=== PATIENT | male | born 1960 | race Caucasian/White ===

== ENCOUNTER 2020-04-05 12:26 | Inpatient (IN) | payer OTHER ==
[~2020-04-05] VITALS: Ht 170.2 cm; Wt 104.3 kg
[2020-04-05 12:35] VITALS: Ht 170.2 cm; Wt 104.3 kg
[2020-04-05 14:20] LABS: PLATELET COUNT 169 x10^3mcL (130-400)
[2020-04-05 14:27] LABS: RED CELL DISTRIBUTION WIDTH 15.2 % (11.5-14.5)
[2020-04-05 14:40] LABS: T3 TOTAL 0.59 ng/mL
[2020-04-05 15:12] LABS: ALKALINE PHOSPHATASE 62 U/L (46-116); ALT/SGPT 23 U/L (16-63); AST/SGOT 12 U/L (15-37); BILIRUBIN TOTAL 1.56 mg/dL (0.20-1.00); CARBON DIOXIDE 16.2 mmol/L (21-32); CHLORIDE SERUM 78 mmol/L (98-107); GFR1 > 60 mL/min; GLUCOSE SERUM 170 mg/dL (74-106); POTASSIUM SERUM 3.8 mmol/L (3.5-5.1); TOTAL PROTEIN, SERUM 6.6 g/dL (6.4-8.2)
[2020-04-05 15:14] LABS: CK-MB < 0.5 ng/mL (0-3.6); CREATINE KINASE 101 U/L (39-308)
[2020-04-05 15:15] LABS: ALBUMIN 2.4 g/dL (3.4-5.0); SODIUM SERUM 109 mmol/L (136-145)
[2020-04-05 15:20] LABS: BAND NEUTROPHIL 14 % (0-10); BASOPHIL 0 % (0-2); MONOCYTE 2 % (0-7); SEGMENTED NEUTROPHILS 76 % (37-75)
[2020-04-05 15:21] LABS: rbc morphology (normal/abnorm) ABNORMAL (NORMAL)
[2020-04-05 15:27] LABS: FREE T4 1.28 ng/dL (0.76-1.46); FREE THYROXINE INDEX 2.3 ug/dL (1.4-4.5); T4(THYROXINE) 6.8 ug/dL (4.7-13.3)
[2020-04-05 15:35] LABS: ERYTHROCYTE SED RATE 80 mm/hr (0-20)
[2020-04-05 15:41] LABS: C REACTIVE PROTEIN 30.9 mg/dL (<=0.9)
[2020-04-05] MEDS ORDERED: KEN025C (16:09)
[2020-04-05] MEDS ORDERED: TERAZOSIN HCL2 MG PO (16:10)
[2020-04-05] MEDS ORDERED: PEPCID AC20 M2 PO (16:11)
[2020-04-05] MEDS ORDERED: HUMULIN 70/303 ML SQ (16:12)
[2020-04-05] MEDS ORDERED: GLUCOPHAGE500 MG PO (16:13)
[2020-04-05 16:14] LABS: UA SPECIFIC GRAVITY 1.025 (1.005-1.035); microscopic required? YES; urine erythrocyte 3+ (NEGATIVE)
[2020-04-05] MEDS ORDERED: ZESTRIL5 MG PO (16:14)
[2020-04-05] MEDS ORDERED: ROSUVASTATIN CA40 MG PO (16:14)
[2020-04-05] MEDS ORDERED: ASPIR 8181 MG PO (16:15)
[2020-04-05] MEDS ORDERED: METOPROLOL TART25 M1 PO (16:15)
[2020-04-05] MEDS ORDERED: TERAZOSIN HCL10 MG PO (16:16)
[2020-04-05 16:44] VITALS: BP 125/73
[2020-04-05 17:15] VITALS: BP 139/72
[2020-04-05 19:46] VITALS: BP 124/71
[2020-04-06 05:34] VITALS: BP 122/60
[2020-04-06 07:17] LABS: CARBON DIOXIDE 23.1 mmol/L (21-32)
[2020-04-06 07:19] LABS: PLATELET COUNT 159 x10^3mcL (130-400)
[2020-04-06 07:33] LABS: RED CELL DISTRIBUTION WIDTH 15.4 % (11.5-14.5)
[2020-04-06 08:06] VITALS: BP 123/74
[2020-04-06 12:07] LABS: BAND NEUTROPHIL 16 % (0-10); BASOPHIL 0 % (0-2); MONOCYTE 4 % (0-7); SEGMENTED NEUTROPHILS 72 % (37-75)
[2020-04-06 12:08] LABS: PLATELET MORPHOLOGY PLATELETS NORMAL; rbc morphology (normal/abnorm) ABNORMAL (NORMAL)
[2020-04-06 12:26] VITALS: BP 112/75
[2020-04-06 20:55] VITALS: BP 159/85
[2020-04-07 05:50] VITALS: BP 140/77
[2020-04-07 07:18] LABS: PLATELET COUNT 182 x10^3mcL (130-400)
[2020-04-07 07:28] LABS: BASOPHIL % 0 % (0-2); RED CELL DISTRIBUTION WIDTH 15.6 % (11.5-14.5)
[2020-04-07 07:52] LABS: CALCIUM 8.5 mg/dL (8.5-10.1); CARBON DIOXIDE 17.5 mmol/L (21-32); CREATININE SERUM 2.4 mg/dL (0.7-1.3); POTASSIUM SERUM 4.9 mmol/L (3.5-5.1); TOTAL PROTEIN, SERUM 7.2 g/dL (6.4-8.2)
[2020-04-07 07:57] LABS: ALBUMIN 2.5 g/dL (3.4-5.0)
[2020-04-07 09:50] VITALS: BP 138/75
[2020-04-07 13:04] VITALS: BP 136/71
[2020-04-07 16:39] VITALS: BP 140/71
[2020-04-07 20:17] VITALS: BP 131/71
[2020-04-08 05:24] VITALS: BP 127/61
[2020-04-08 07:35] LABS: PLATELET COUNT 221 x10^3mcL (130-400)
[2020-04-08 07:49] LABS: CALCIUM 8.9 mg/dL (8.5-10.1); CARBON DIOXIDE 22.4 mmol/L (21-32); CREATININE SERUM 2.3 mg/dL (0.7-1.3)
[2020-04-08 07:58] LABS: BASOPHIL % 0 % (0-2); RED CELL DISTRIBUTION WIDTH 16.2 % (11.5-14.5)
[2020-04-08 08:22] VITALS: BP 145/70
[2020-04-08 12:30] VITALS: BP 140/70
[2020-04-08 16:51] VITALS: BP 137/86
[2020-04-08 20:35] VITALS: BP 154/81
[2020-04-09 05:05] VITALS: BP 148/76
[2020-04-09 07:55] VITALS: BP 158/80
[2020-04-09 12:04] VITALS: BP 151/76
[2020-04-09 12:10] LABS: BASOPHIL % 0.4 % (0-2); PLATELET COUNT 247 x10^3mcL (130-400)
[2020-04-09 12:13] LABS: CALCIUM 9.3 mg/dL (8.5-10.1); CARBON DIOXIDE 26.3 mmol/L (21-32); CREATININE SERUM 2.1 mg/dL (0.7-1.3); POTASSIUM SERUM 3.5 mmol/L (3.5-5.1)
[2020-04-09 16:36] VITALS: BP 141/84
[2020-04-09 18:17] LABS: microscopic required? YES; urine erythrocyte TRACE (NEGATIVE)
[2020-04-09 21:15] VITALS: BP 137/70
[2020-04-10 06:23] VITALS: BP 154/70
[2020-04-10 07:09] LABS: BASOPHIL % 0.4 % (0-2); PLATELET COUNT 241 x10^3mcL (130-400)
[2020-04-10 07:36] LABS: PHOSPHOROUS 3.7 mg/dL (2.5-4.9)
[2020-04-10 07:37] LABS: RED CELL DISTRIBUTION WIDTH 15.9 % (11.5-14.5)
[2020-04-10 07:40] LABS: BILIRUBIN TOTAL 1.1 mg/dL (0.20-1.00); CALCIUM 8.8 mg/dL (8.5-10.1); CARBON DIOXIDE 25.4 mmol/L (21-32); CREATININE SERUM 1.8 mg/dL (0.7-1.3); POTASSIUM SERUM 3.3 mmol/L (3.5-5.1); TOTAL PROTEIN, SERUM 7.3 g/dL (6.4-8.2)
[2020-04-10 07:44] LABS: ALBUMIN 2.5 g/dL (3.4-5.0)
[2020-04-10 08:13] VITALS: BP 148/76
[2020-04-10 11:55] VITALS: BP 139/66
[2020-04-10 12:35] VITALS: BP 139/66
[2020-04-10 16:33] VITALS: BP 139/79
== END 2020-04-10 17:00 | disposition other institution (70) | DRG 417 ==
LOC: ED 12:26 → DU 14:22
PROVIDERS: Internal Medicine; Specialist; Surgery; ADMIT Internal Medicine; ATTEND Internal Medicine
PROC: 0FT44ZZ Resection of Gallbladder, Percutaneous Endoscopic Approach (ICD-10-PCS; principal; 2020-04-06 16:30)
DX: K81.0 Acute cholecystitis (principal); J96.01 Acute respiratory failure with hypoxia; E87.1 Hypo-osmolality and hyponatremia; J98.11 Atelectasis; N17.9 Acute kidney failure, unspecified; I11.9 Hypertensive heart disease without heart failure; J44.9 Chronic obstructive pulmonary disease, unspecified; I25.10 Atherosclerotic heart disease of native coronary artery without angina pectoris; Z20.828 Contact with and (suspected) exposure to other viral communicable diseases; E78.5 Hyperlipidemia, unspecified; G47.33 Obstructive sleep apnea (adult) (pediatric); E11.65 Type 2 diabetes mellitus with hyperglycemia; N40.0 Benign prostatic hyperplasia without lower urinary tract symptoms; E66.01 Morbid (severe) obesity due to excess calories; K82.A1 Gangrene of gallbladder in cholecystitis; Z87.891 Personal history of nicotine dependence; Z95.1 Presence of aortocoronary bypass graft; Z68.35 Body mass index [BMI] 35.0-35.9, adult; Z79.4 Long term (current) use of insulin; Z79.899 Other long term (current) drug therapy
CPT/HCPCS: 82962; 83880; 84439; G0378; J0131; J1815; J2250; J2405; J2543; J2550; J3010; J3490; J7030; J7042; Q0092; Q9967